=== PATIENT | male | born 1965 ===

== ENCOUNTER 2021-06-02 09:12 | Day surgery (SDC) | payer OTHER | END 2021-06-02 15:00 | disposition home or self-care (01) | LOC: AMB-ENDOS 09:12 | PROVIDERS: ATTEND Colon & Rectal Surgery | DX: D12.3 Benign neoplasm of transverse colon (principal); K64.1 Second degree hemorrhoids; Z20.822 Contact with and (suspected) exposure to COVID-19 ==